=== PATIENT | male | born 1960 | race Caucasian/White ===

== ENCOUNTER → 2020-07-19 13:50 | Outpatient (CLI) | payer BC, SELFPAY ==
--- NOTE | ~2020-07-19 | US_ITS ---
EXAMINATION: US venous doppler [facility] DATE: 07/19/2020 14:14 INDICATION: Left lower limb pain. TECHNIQUE: Grayscale ultrasound images without and with compression and Doppler ultrasound images of the left lower extremity veins were obtained. COMPARISON: None. FINDINGS: The visualized portions of left common femoral vein, profunda (deep) femoral vein, femoral vein, popl iteal vein, peroneal veins, posterior tibial veins, and greater saphenous vein outflow are patent. IMPRESSION: 1. No deep venous thrombosis. Reviewed, dictated and finalized at location A. UCTION TEAM MANAGER
== END ==
PROVIDERS: PCP Family Medicine; Visit Provider Family Medicine
DX: M79.605 Pain in left leg (principal)
CPT/HCPCS: 93971

== ENCOUNTER 2021-09-21 02:04 | Day surgery (SDC) | payer OTHER, SELFPAY ==
[2021-09-11 08:41] VITALS: BMI 33.9
[2021-09-21 07:01] VITALS: BMI 33.7
[2021-09-21 07:05] VITALS: BP 166/101; PULSE 43; RESP 18; TEMP 36.4; O2SAT 92
[2021-09-21] MEDS: LACTATED RINGERS 1,000 ML 150 ML IV CONT (07:15)
--- NOTE | 2021-09-21 07:20 | P.CONGI_ITS ---
Assessment and Plan Assessment and plan (1) Screening for colon cancer: Code(s): Z12.11 - Encounter for screening for malignant neoplasm of colon Status: Acute Assessment and Plan: Patient presents today for screening colonoscopy. He appears to be at average risk for colon polyps. Further recommendations will be given after endoscopy. GI Consult Note Consult date/time: 09/21/21 07:20 HPI: Akhil Lunsford is a 61 year old male Presents for screening colonoscopy. Patient's current weight appetite bowel movements are normal. He denies abdominal pain. He has had no bleeding. Patient's previous colonoscopy 10 years ago was unremarkable. He presents today for neoplasia screening. Review of Systems Review of Systems: All systems reviewed & are unremarkable except as noted in HPI and below PMFSH Past Medical History Medical History (Reviewed 08/04/21 @ 09:59 by Candace Nunez [facility]) Hepatitis C antibody test negative (12/23/19) Surgical History Surgical History (Reviewed 08/04/21 @ 09:59 by Candace Nunez [facility]) H/O vasectomy Family History Family History (Reviewed 08/04/21 @ 09:59 by Candace Nunez [facility]) Mother Hypertension Family history of elevated blood lipids Father Family history of Alzheimer's disease, Onset Age: 72 Social History Social History (Reviewed 08/04/21 @ 09:59 by Candace Nunez [facility]) Smoking status: Former smoker Tobacco type: cigarettes Smoking end date: 07/25/98 Alcohol intake: current Drinks per week: 6 Substance use: never Substance use type: does not use Living arrangements: with family Spiritual care concerns: No Meds Home Medications and Allergies Home Medications Medication Instructions Recorded Confirmed Type sildenafil 100 mg tablet 100 mg PO DAILY PRN #6 tablet 08/13/19 09/11/21 Rx albuterol sulfate 90 mcg/actuation 2 puff INHALATION Q4H PRN #18 g 05/03/21 09/21/21 Rx aerosol inhaler quinapril 10 mg tablet See Rx Instructions .ROUTE 05/03/21 09/21/21 Rx .COMPLEX #90 tablet Advair Diskus 250 mcg-50 mcg/dose See Rx Instructions .ROUTE 06/26/21 09/21/21 Rx powder for inhalation .COMPLEX #60 ea NS hydrochlorothiazide 12.5 mg tablet See Rx Instructions .ROUTE 06/26/21 09/21/21 Rx .COMPLEX #90 tablet simvastatin 10 mg tablet 10 mg PO DAILY #90 tablet 08/30/21 09/21/21 Rx Allergies Allergy/AdvReac Type Severity Reaction Status Date / Time lactase AdvReac Mild Diarrhea Verified 09/11/21 08:39 Exam Narrative: Physical exam reveals patient be alert. Vital signs stable. HEENT exam is unremarkable. Patient is anicteric. Lungs are clear to auscultation and percussion. Heart is without murmur or extra sounds. Abdominal exam bowel sounds are present soft nontender with no organomegaly. Digital external rectal exam is normal.
--- NOTE | 2021-09-21 07:46 | WPDANESEPPF ---
Anes - Initial Pre Proc Eval Procedure: Operation Date: 09/21/21 08:00 Proposed Procedures p Screening Colonoscopy - Lester Coker MD Date/Time: 09/21/21 07:46 Surgeon: Lester Coker MD Pre Op Diagnosis: neoplasm screening Patient Data Age: 61 Gender: M Height: 1.93 m Weight: 126 kg Allergies Allergy/AdvReac Type Severity Reaction Status Date / Time lactase AdvReac Mild Diarrhea Verified 09/11/21 08:39 Home Medications Medication Instructions Recorded Confirmed Type sildenafil 100 mg tablet 100 mg PO DAILY PRN #6 tablet 08/13/19 09/11/21 Rx albuterol sulfate 90 mcg/actuation 2 puff INHALATION Q4H PRN #18 g 05/03/21 09/21/21 Rx aerosol inhaler quinapril 10 mg tablet See Rx Instructions .ROUTE 05/03/21 09/21/21 Rx .COMPLEX #90 tablet Advair Diskus 250 mcg-50 mcg/dose See Rx Instructions .ROUTE 06/26/21 09/21/21 Rx powder for inhalation .COMPLEX #60 ea NS hydrochlorothiazide 12.5 mg tablet See Rx Instructions .ROUTE 06/26/21 09/21/21 Rx .COMPLEX #90 tablet simvastatin 10 mg tablet 10 mg PO DAILY #90 tablet 08/30/21 09/21/21 Rx Patient hx anesthesia problems: none Family hx anesthesia problems: none Results Review: All pre-operative results and documents have been reviewed as part of the pre-operative evaluation. [facility]MERLY [facility], [facility] Past Medical History Medical History Hepatitis C antibody test negative (12/23/19) Surgical History Surgical History H/O vasectomy Family History Family History Mother Hypertension Family history of elevated blood lipids Father Family history of Alzheimer's disease, Onset Age: 72 Social History Social History Smoking status: Former smoker Tobacco type: cigarettes Smoking end date: 07/25/98 Alcohol intake: current Drinks per week: 6 Substance use: never Substance use type: does not use Living arrangements: with family Spiritual care concerns: No Anes - Eval Final PreProcedure Day of Procedure 09/21/21 07:46 Patient weight: obese Heart: regular rate and rhythm Lungs: clear to auscultation Airway: Mallampati scale class II Neurological: alert and oriented Last oral intake: >/= 8 hours ASA classification: III Emergent: no Anesthetic plan: proceed Anesthesia type and monitoring: general GIVS and standard monitoring Results Review: All pre-operative results and documents have been reviewed as part of the pre-operative evaluation. Informed Consent: The patient's anesthetic plan and its attendant risks and benefits were discussed with the patient/family/POA. Questions were solicited and answers provided to the satisfaction of the patient/family/POA.
[2021-09-21 08:26] VITALS: BP 143/96; PULSE 95; RESP 25; O2SAT 98
[2021-09-21 08:36] VITALS: BP 153/105; PULSE 95; RESP 23; O2SAT 96
[2021-09-21 08:46] VITALS: BP 141/106; PULSE 93; RESP 20; O2SAT 95
== END 2021-09-21 08:50 | disposition home or self-care (01) ==
PROVIDERS: PCP Family Medicine; Visit Provider Internal Medicine Gastroenterology
PROC: 0DJD8ZZ Inspection of Lower Intestinal Tract, Via Natural or Artificial Opening Endoscopic (ICD-10-PCS; CPT 45378; principal; 2021-09-21 08:00)
DX: Z12.11 Encounter for screening for malignant neoplasm of colon (principal); K64.8 Other hemorrhoids; D12.5 Benign neoplasm of sigmoid colon; Z87.891 Personal history of nicotine dependence; Z79.51 Long term (current) use of inhaled steroids; E66.9 Obesity, unspecified; Z68.33 Body mass index [BMI] 33.0-33.9, adult
CPT/HCPCS: 45385; 88305; J2704; J7120

== ENCOUNTER 2022-09-22 11:06 | Emergency (ER) | payer OTHER, SELFPAY ==
[2022-09-22 11:11] VITALS: BP 142/91; PULSE 71; RESP 16; TEMP 36.7; O2SAT 97
--- NOTE | 2022-09-22 11:13 | ED.URI ---
HPI - URI/Sore Throat General Chief Complaint: Upper Respiratory Infection Stated Complaint: Congestion Source: patient and RN notes reviewed Mode of arrival: ambulatory Limitations: no limitations History of Present Illness HPI Narrative: 62 y/o male presented for c/o sinus pressure and drainage, ear pressure, and cough for about 3 weeks. States he had a few days of relief about one week ago, but symptoms have persisted. Denies tinnitus, dizziness, sob, n/v/d/f/c. Endorses chronic wheezing, states it is unchanged. Has used some nasal decongestant spray for symptoms. MD elicited complaint: cough Related Data Allergies Allergy/AdvReac Type Severity Reaction Status Date / Time lactase AdvReac Mild Diarrhea Verified 09/22/22 11:20 Review of Systems Review of Systems: CONSTITUTIONAL:Denies malaise, chills, sweats, fever EYES: Denies visual changes, redness, or discharge ENT: Reports rhinorrhea, congestion, sinus pain, otalgia CARDIOVASCULAR: Denies chest pain, palpitations, edema RESPIRATORY: Reports cough, post nasal drainage. Denies dyspnea GASTROINTESTINAL: Denies abdominal pain, nausea, vomiting, diarrhea SKIN: Denies rash or itching MUSCULOSKELETAL: Denies myalgia PMFSH Past Medical History Medical History Hepatitis C antibody test negative (12/23/19) Moderate persistent asthma with exacerbation Surgical History Surgical History H/O vasectomy Family History Family History Mother Hypertension Family history of elevated blood lipids Father Family history of Alzheimer's disease, Onset Age: 72 Social History Social History Smoking status: Former smoker Tobacco type: cigarettes Smoking end date: 07/25/98 Alcohol intake: current Drinks per week: 6 Substance use: never Substance use type: does not use Lack of Transportation: No Lack of Food: Never True Current Housing: I Have Housing Concerned About Future Housing: No Difficulty Paying Gas/Electric Bills: No Difficulty Paying for Meds: Decline to Answer Currently Unemployed: No Education: High School Diploma/GED Difficulty w/ Childcare or Family Care: No Living arrangements: with family Spiritual care concerns: No Exam Narrative: GENERAL: mildly ill-appearing, nontoxic no acute distress. HEAD: Normocephalic EYES: PERRLA, conjunctivae clear ENT: Mucous membranes moist. TMs pearly [place]on with dull light reflex bilaterally; no tragal tenderness. Oropharynx erythematous without lesions or exudate CHEST: Clear to auscultation. Faint exp wheeze left anterior chest; No rhonchi, rales, or stridor. No respiratory distress, speaks in full sentences. HEART: Regular rate and rhythm. No murmur heard. SKIN: Warm, dry, no rash. NEURO: Alert and oriented x3. PSYCH: Normal mood and affect Course Course Emergency Course: Patient is aware of diagnosis, understands and agrees to treatment plan. Anticipatory guidance given. Patient agrees to follow-up as directed and is aware of reasons to seek care at the emergency department. Portions of this record may have been created with voice recognition software Level of Care: Express Care Visit Vital Signs Vital signs: reviewed MDM - URI/Sore Throat MDM Narrative Medical decision making narrative: Treat for sinusitis. Advised supportive measures and signs/symptoms to go to the ER. Pt is appropriate for outpt treatment and f/u. Differential Diagnosis Differential diagnosis: Likely upper respiratory infection, sinusitis and viral infection Discharge Plan Discharge Clinical Impression: Upper respiratory infection Qualifiers: URI type: unspecified URI Qualified Code(s): J06.9 - Acute upper respiratory infection, unspecified Patient Disposition: [facility]
== END 2022-09-22 11:35 | disposition home or self-care (01) ==
PROVIDERS: Emergency Provider Nurse Practitioner Family; PCP Family Medicine
DX: J06.9 Acute upper respiratory infection, unspecified (principal); Z87.891 Personal history of nicotine dependence; J45.909 Unspecified asthma, uncomplicated
CPT/HCPCS: 99213; G0463

== ENCOUNTER 2023-05-02 10:37 | Outpatient (CLI) | payer OTHER, SELFPAY ==
--- NOTE | ~2023-05-02 | XR_ITS ---
Left Knee Technique: AP, lateral, and sunrise views were obtained. Clinical History: Pain Findings: No fracture or dislocation is seen. Osseous alignment is anatomic. Minimal degenerative spu rring noted. Soft tissues are unremarkable. No joint effusion is seen. Impression: Minimal degenerative spurring. Reviewed, dictated and finalized at location . C 13 CATAPULT OPERATOR Impression: Minimal degenerative spurring.
== END 2023-05-02 10:38 | disposition home or self-care (01) ==
LOC: ANHIMG 10:42
PROVIDERS: PCP Family Medicine; Visit Provider Family Medicine
DX: M25.562 Pain in left knee (principal); M77.8 Other enthesopathies, not elsewhere classified
CPT/HCPCS: 73564

== ENCOUNTER 2024-04-14 12:19 | Outpatient (CLI) | payer OTHER, SELFPAY ==
--- NOTE | 2024-04-14 12:20 | ECHO_ITS ---
Patient Info Name: Akhil Lunsford Age: 64 years : 1960 Gender: Male Ht: 76 in Wt: 278 lbs BSA: 2.63 m2 HR: 48 bpm BP: 134 / 77 mmHg Technical Quality: Fair Exam Date: 04/14/2024 12:32 PM Exam Location: Echo Lab Patient Status: Outpatient Admit Date: 04/14/2024 Staff Ordering Physician: Dougie Peters DO Respiratory Therapy Manager: Rosey Miller RDCS Attending Provider: Dougie Peters DO Referring Physician: Fran CHAN; Exam Type: CA echo doppler color flow Study Info Indications R06.09 - Other forms of dyspnea Complete two-dimensional, color flow and Doppler transthoracic echocardiogram is performed. Summary 1. Complete two-dimensional, color flow and Doppler transthoracic echocardiogram is performed. 2. Left ventricular chamber dimension is normal. 3. Left ventricular systolic function is normal, estimated at 60-65%. 4. The left ventricular diastolic function is grade I diastolic dysfunction. 5. E/e' 6 is not elevated. 6. Left atrial chamber dimension is mildly enlarged. 7. The aortic valve is not well visualized. Cannot determine number of aortic valve leaflets. 8. There is mild aortic valve sclerosis. 9. No pulmonary hypertension, estimated pulmonary arterial systolic pressure is 34 mmHg. Left Ventricle E/e' 6 is not elevated. Left ventricular chamber dimension is normal. Left ventricular systolic function is normal, estimated at 60-65%. The left ventricular diastolic function is grade I diastolic dysfunction. Right Ventricle Right ventricular systolic function is normal and with normal TAPSE 2.1 cm. Right ventricular chamber dimension is normal. Left Atria Left atrial chamber dimension is mildly enlarged. Right Atria Right atrial chamber dimension is normal. Aortic Valve The aortic valve is not well visualized. Cannot determine number of aortic valve leaflets. There is mild aortic valve sclerosis. There is no aortic valve stenosis. There is no aortic valve regurgitation. Pulmonic Valve There is no pulmonic regurgitation. Mitral Valve There is no mitral valve stenosis. There is no mitral valve regurgitation. Tricuspid Valve There is no tricuspid valve regurgitation. No pulmonary hypertension, estimated pulmonary arterial systolic pressure is 34 mmHg. Pericardium/Pleural There is no pericardial effusion. Inferior Vena Cava Normal inferior vena cava with >50% collapse upon inspiration consistent with normal right atrial pressure, 5 mmHg. Aorta The aortic root size at the sinus of Valsalva is normal. Left Ventricular Outflow Tract Name Value Normal LVOT 2D LVOT Diameter 2.3 cm LVOT Doppler LVOT Peak Gradient 5 mmHg LVOT Mean Gradient 2 mmHg LVOT VTI 21 cm LVOT VTI/AV VTI Ratio 0.7 LVOT Stroke Volume 83 ml LVOT CO 5.6 l/min LVOT CI 2.1 l/min/m2 Pulmonic Valve Name Value Normal
== END 2024-04-14 12:20 | disposition home or self-care (01) ==
LOC: ANHCARD 12:19
PROVIDERS: PCP Family Medicine; Visit Provider Internal Medicine Cardiovascular Disease
DX: I50.1 Left ventricular failure, unspecified (principal); I35.8 Other nonrheumatic aortic valve disorders; R06.09 Other forms of dyspnea
CPT/HCPCS: 93306

== ENCOUNTER 2024-05-26 09:51 | Outpatient (CLI) | payer OTHER, SELFPAY ==
--- NOTE | 2024-06-15 15:12 | P.SLEEP_ITS ---
Sleep Study - Home Unattended Date of Study: 05/26/24 Ordering Provider: Dougie Peters DO Interpreting Provider: Estefanía Arauz DO Home Sleep Study Type: Watch PAT Height: 1.93 m Weight: 122.47 kg Body Mass Index: 32.8 Neck Circumference (inches): 18.5 [place]: 11 Reason for Sleep Study Daytime hypersomnia Sleep History The patient is a 64 year old male that had a sleep study ordered by his weight analyst for evaluation of sleep apnea. The patient admits to snoring loudly. He denies choking or gasping while asleep. He admits to having trouble breathing on his back. He denies morning headaches. He denies having a dry or sore mouth/ throat in the morning. He denies nocturnal heartburn. He admits to nocturia. He denies having trouble falling asleep or staying asleep. If he wakes up throughout the night he will have difficulty returning to sleep. He denies hypnotic or sedative use. He denies feeling anxious about sleep. He denies feeling tired or sleepy during the day. He denies feeling unrefreshed or tired in the morning. He denies having the urge to fall asleep during the day. He does feel drowsy while driving. He denies sleep paralysis, cataplexy and hypnagogic / hypnopompic hallucinations. He denies clenching or grinding his teeth. He denies kicking or jerking his legs excessively. He does have a restless feeling in his legs. He denies having the urge to move his legs. His leg sensations improve with activity but they are not worse with rest. The leg sensations only occur in the evening but it does not cause a disturbance in his sleep. He goes to bed at 10:30 p.m. on both weekdays and weekends. It takes him 15 minutes to fall asleep. He typically gets 6 hours of sleep on his work days 6- 1/2 hours of sleep on his days off. His sleep is a little more restorative on his days off. He denies taking any planned naps. He denies dream enactment behavior. He denies sleep walking. He does not consume any caffeinated beverages throughout the day. He consumes 1 alcoholic beverage 1-2 nights per week. He denies tobacco use. He exercises 3- 4 nights per week. [facility] Past Medical History Medical History Moderate persistent asthma with exacerbation Hepatitis C antibody test negative (12/23/19) Surgical History Surgical History H/O vasectomy Family History Family History Mother Hypertension Family history of elevated blood lipids Father Family history of Alzheimer's disease, Onset Age: 72 Social History Social History Smoking packs per day: 1 Smoking cigarettes per day: 20.0 Years smoked: 8 Smoking pack-years: 8.00 Smoking status: Former smoker Tobacco type: cigarettes Smoking end date: 07/25/98 Alcohol intake: current Drinks per week: 6 Substance use: never Substance use type: does not use Lack of Transportation: No Lack of Food: Never True Current Housing: I Have Housing Concerned About Future Housing: No Difficulty Paying Gas/Electric Bills: No Difficulty Paying for Meds: Decline to Answer Currently Unemployed: No Education: High School Diploma/GED Difficulty w/ Childcare or Family Care: No Living arrangements: with family Spiritual care concerns: No Medications Home Medications ?Medication ?Instructions ?Recorded ?Confirmed ?Type albuterol sulfate 90 mcg/actuation See Rx Instructions .Route 05/27/23 05/01/24 Rx aerosol inhaler .COMPLEX #18 grams simvastatin 20 mg tablet 20 mg PO DAILY #90 tabs 10/31/23 05/01/24 Rx hydrochlorothiazide 12.5 mg tablet See Rx Instructions .Route 02/06/24 05/01/24 Rx .COMPLEX #90 tabs oxybutynin chloride 10 mg 10 mg PO DAILY #90 tabs 02/06/24 05/01/24 Rx tablet,extended release 24 hr fluticasone 250 mcg-salmeterol 50 inhalation 02/25/24 05/01/24 History mcg/dose blistr powdr for inhalation losartan 50 mg tablet 50 mg PO DAILY #90 tabs 05/12/24 Rx Sleep Procedure The sleep study was completed using WatchPAT a technically adequate device with seven channels: peripheral arterial tone, actigraphy, body position, snore, respiratory movement, pulse oximetry, sleep staging, and heart rate. Prior to using the device, the patient received verbal and written instructions for its application and was provided with the help desk phone number for additional telephonic instruction with 24-hour availability of qualified personnel to answer questions. The study was scored using CMS guidelines. Sleep Architecture The total recording time is 7 hrs, 24 min. The total sleep time is 6 hrs, 10 min. Sleep latency is 29 minutes. REM latency is 157 minutes. The patient had 6 episodes of waking. Sleep architecture shows 19.4% deep sleep, 55.5% light sleep, and (as % Total Sleep Time) showed NREM (Light 55.5%; Deep 19.4%), and a 25.1% stage REM. The patient spent 10.5% of total sleep time in the supine position. Sleep efficiency was 83.33. Respiratory Analysis The overall AHI (pAHI 4%:) is 12.0. The central AHI is 1.3. The AHI was 9.0 in NREM and 20.4 in REM sleep. The AHI was 35.5 in Supine and 9.6 in Non-supine sleep. Percent of Yoel Mcelroy respirations is 0.0. Oximetry Data The oxygen desaturation index (NORMA 4%:) is 10.1. The mean saturation is 92%, and the lowest saturation is 84%. Time spent with saturation < 88% is 2.9 minutes. Snoring Profile Snoring average intensity is 40 dB. The patient snored above 45 decibels for 7.5 minutes, 2.0% of sleep time. Cardiac Profile The average pulse rate is 62 beats per minutes. The lowest pulse rate is 30 bpm. The highest pulse rate reported is 108 bpm. Atrial fibrillation was not detected. Premature beats occur 5.8 per minute. Assessment and Plan Assessment and Plan (1) ANUM (obstructive sleep apnea): Code(s): G47.33 - Obstructive sleep apnea (adult) (pediatric) Status: Acute Assessment and Plan: The patient had an overall AHI of 12.0 with desaturation down to 84%. This is consistent with mild sleep apnea. Due to the patient's asthma, he qualifies for treatment. I recommend that the patient be prescribed AutoPAP 5-15 cm H2O, CPAP mask/filters/tubing and heated humidity. This should be used with all episodes of sleep.? Compliance should be reviewed within 31-90 days of starting therapy for usage greater than 4 hours per night greater than 70% of the nights. The patient should be asked about symptoms such as?excessive daytime sleepiness, quality of sleep, decreased nocturia, increased?mental functioning such as memory, mood, and concentration. Data The data obtained during this sleep study is adequate for interpretation. Certification This sleep study has been reviewed by a board certified sleep medicine physician.
[2024-06-15 15:13] VITALS: BMI 32.8
== END 2024-05-27 15:56 | disposition home or self-care (01) ==
LOC: ANHCSM 10:02
PROVIDERS: PCP Family Medicine; Visit Provider Internal Medicine Cardiovascular Disease
DX: G47.33 Obstructive sleep apnea (adult) (pediatric) (principal); G47.10 Hypersomnia, unspecified
CPT/HCPCS: 95800

== ENCOUNTER 2024-07-15 08:52 | Outpatient (CLI) | payer BC, SELFPAY ==
--- NOTE | ~2024-07-15 | NM_ITS ---
EXAMINATION: NM skyler stress w perfusion DATE: 07/15/2024 14:03 INDICATION: Ventricular tachycardia TECHNIQUE: Rest images were obtained following intravenous administration of 11.0 mCi Tc99m tetrofosm in (Myoview). The patient was infused intravenously with Lexiscan (Regadenoson). Then, 34.0 mCi Tc99m tetrofosmin (Myoview) was administered intravenously, and stress images were obtained initially in t he supine position. Additional repeat post stress imaging was obtained in the prone position.. Data w as reconstructed into short axis and horizontal and vertical long axis SPECT images. Gated SPECT imag es were also obtained. COMPARISON: None. FINDINGS: There is likely diaphragmatic attenuation artifact at the apex and along the inferior wall which normalizes on the imaging post stress imaging obtained in the prone position. There is no defin ite perfusion abnormality on the prone post stress imaging to suggest ischemia or infarction. There is normal left ventricular chamber size, wall motion and ejection fraction. Left ventricular ejectio n fraction measures 58%. IMPRESSION: 1. Normal myocardial perfusion at rest and during stress. 2. Left ventricular ejection fraction measuring 58%. Reviewed, dictated and finalized at location A. STRETCHER
--- NOTE | 2024-07-15 08:58 | EST_ITS ---
Patient Info Name: Akhil Lunsford Age: 64 years : 1960 Gender: Male Ht: 75 in Wt: 270 lbs BSA: 2.58 m2 HR: 68 bpm BP: 132 / 90 mmHg Exam Date: 07/15/2024 10:11 AM Exam Location: Echo Lab Patient Status: Outpatient Admit Date: 07/15/2024 Staff Ordering Physician: Dougie Peters DO Attending Provider: Dougie Peters DO Exercise Technologist: Rosey Miller RDCS Exercise Physician: Dougie Peters DO Exam Type: CA stress skyler w NM Study Info A regadenoson stress test was performed. Summary 1. 1. Negative lexiscan stress test for ischemic ST changes by ECG criteria. 2. 2. Stable hemodynamics throughout the test. 3. 3. Nuclear scan to follow and will be reported separately. Please correlate with it. 4. 4. Patient informed of the above results. Protocol: Lexiscan Stress ECG Details Stage: REST Duration (min): 1 min : 31 sec HR (bpm): 73 SBP (mmHg): 132 DBP (mmHg): 90 Stage: REST Duration (min): 7 min : 35 sec HR (bpm): 72 SBP (mmHg): 132 DBP (mmHg): 90 Stage: STAGE 1 Duration (min): 0 min : 59 sec HR (bpm): 82 SBP (mmHg): 127 DBP (mmHg): 89 Stage: RECOVERY Duration (min): 1 min : 0 sec HR (bpm): 94 SBP (mmHg): 127 DBP (mmHg): 89 Stage: RECOVERY Duration (min): 2 min : 0 sec HR (bpm): 85 SBP (mmHg): 126 DBP (mmHg): 85 Stage: RECOVERY Duration (min): 3 min : 0 sec HR (bpm): 90 SBP (mmHg): 128 DBP (mmHg): 80 Stage: RECOVERY Duration (min): 3 min : 3 sec HR (bpm): 91 SBP (mmHg): 128 DBP (mmHg): 80 Rest HR: 72 bpm Peak HR: 96 bpm Rest Sys BP: 132 mmHg Peak Sys BP: 128 mmHg Max Pred HR: 156 bpm % Max Pred HR: 62 % Target HR: 133 bpm Max RPP: 12,288 bpm*mmHg Termination Reason: Completed protocol Cardiac Symptoms: Shortness of breath Total Time: 1 min : 0 sec Rest Flynn BP: 90 mmHg Peak Flynn BP: 80 mmHg Total Dose: 0.4 mg Resting ECG Sinus rhythm, PVC. Stress ECG No ST changes. Arrhythmias None. Report Signatures
== END 2024-07-15 08:53 | disposition home or self-care (01) ==
PROVIDERS: PCP Family Medicine; Visit Provider Internal Medicine Cardiovascular Disease
DX: I47.29 Other ventricular tachycardia (principal)
CPT/HCPCS: 78452; 93017; A9502; J2785